=== PATIENT | male | born 1990 | race Caucasian/White ===

== ENCOUNTER 2019-05-14 11:37 | Emergency (ER) | payer OTHER ==
[~2019-05-14] VITALS: Ht 177.8 cm; Wt 108.9 kg
[2019-05-14 12:11] VITALS: BP 139/90
[2019-05-14] MEDS ORDERED: LIDOCAINE 1% HCL (LOCAL ANESTH.) INJ 20ML MDV IJ ONE (13:45)
[2019-05-14] MEDS ORDERED: TETANUS-DIPTH-ACEL PERTUSSIS 0.5ML SYRG IM ONE (14:00)
== END 2019-05-14 14:13 | disposition home or self-care (01) ==
LOC: ER 11:37
DX: S61.210A Laceration without foreign body of right index finger without damage to nail, initial encounter (principal); W26.9XXA Contact with unspecified sharp object(s), initial encounter; Y93.89 Activity, other specified; Y92.89 Other specified places as the place of occurrence of the external cause; Y99.8 Other external cause status
CPT/HCPCS: 12001; 90471; 90715; 99283; J2001

== ENCOUNTER 2020-05-10 12:05 | Emergency (ER) | payer OTHER ==
[~2020-05-10] VITALS: Ht 177.8 cm; Wt 113.4 kg
[2020-05-10] MEDS ORDERED: PROCHLORPERAZINE EDISYLATE 5 MG/ML 2ML VIAL IV ONE (12:30)
[2020-05-10] MEDS ORDERED: LORazepam 2MG/ML-1ML VIAL IV ONE (12:30)
[2020-05-10] MEDS ORDERED: SODIUM CHLORIDE 0.9% 1,000 ML IV ONE (12:30)
[2020-05-10 14:20] LABS: Basophils # (auto) 0 10 ^3/uL (0-0.2); Eosinophils # (auto) 0.1 10 ^3/uL (0-0.8); Lymphocytes # (auto) 1.7 10 ^3/uL (0.4-5.4); Mean Corpuscular Hgb Conc. 35.5 g/dL (32.0-36.0); Monocytes # (auto) 0.5 10 ^3/uL (0-1.3); Neutrophils # (auto) 5.5 10 ^3/uL (1.6-8.6); Neutrophils % (auto) 70.8 % (37.0-80.0); Red Blood Cells 5.63 10^6/uL (4.5-5.90)
[2020-05-10 14:23] LABS: Basophils % (auto) 0.4 % (0.0-2.0); Calcium 8.7 mg/dL (8.5-10.1); Eosinophils % (auto) 0.7 % (0.0-7.0); Hematocrit 49.6 % (41.0-53.0); Hemoglobin 17.6 g/dL (13.5-17.5); Lymphocytes % (auto) 21.8 % (10.0-50.0); Mean Corpuscular Hemoglobin 31.3 pg (28.0-32.0); Monocytes % (auto) 6.3 % (0.0-12.0); Nucleated Red Blood Cells % 0.2 %; Platelet Count (auto) 206 10^3/uL (140-450); Potassium 4.2 mmol/L (3.5-5.1); Red Cell Distribution Width 13.3 % (11.8-14.3); White Blood Cell 7.7 10^3/uL (4.4-10.8)
[2020-05-10 14:28] LABS: Albumin 4.6 g/dL (3.4-5.0); BUN/Creatinine Ratio 14.7; Bilirubin, Total 1.4 mg/dL (0.2-1.0); Total Protein 8.9 g/dL (6.4-8.2)
[2020-05-10 14:34] VITALS: BP 148/98
== END 2020-05-10 16:54 | disposition home or self-care (01) ==
LOC: ER 12:05
DX: F10.230 Alcohol dependence with withdrawal, uncomplicated (principal)
CPT/HCPCS: 36415; 80053; 80320; 85025; 96361; 96374; 96375; 99284; J0780; J2060